=== PATIENT | female | born 1990 | race Two or more races ===

== ENCOUNTER 2023-09-18 04:19 | Emergency (ER) | payer MEDICAID ==
[~2023-09-18] VITALS: Ht 165.1 cm; Wt 50.4 kg
[~2023-09-18 04:19] MED LIST: RISP1TAB48 PO
[2023-09-18 04:27] VITALS: TEMP 97.9
[2023-09-18 04:56] LABS: PH,URINE DRUG SCREEN 5.5 (5.0-8.0)
[2023-09-18] MEDS ORDERED: KETOROLAC TROMETHAMINE 60 MG/2 ML VIAL IM ONE (05:00)
[2023-09-18 05:01] LABS: BASOPHILS % (AUTO) 0.8 % (0.0-2.0); EOSINOPHILS % (AUTO) 8.5 % (1.0-6.0); HEMATOCRIT 34.4 % (36-46); HEMOGLOBIN 11.4 g/dL (12.0-16.0); LYMPHOCYTES # (AUTO) 2.3 K/uL (1.0-4.8); LYMPHOCYTES % (AUTO) 28.4 % (22.0-44.0); MEAN CORPUSCULAR HEMOGLOBIN 28.7 pg (26.0-34.0); MEAN CORPUSCULAR HGB CONC 33.1 G/dL (31.0-37.0); MEAN CORPUSCULAR VOLUME 87 fL (80-100); MONOCYTES # (AUTO) 0.7 K/uL (0.1-1.0); MONOCYTES % (AUTO) 8.5 % (2.0-9.0); NEUTROPHILS # (AUTO) 4.4 K/uL (1.8-7.7); NEUTROPHILS % (AUTO) 53.8 % (40.0-70.0); PLATELET COUNT (AUTO) 234 K/uL (150-450); RED BLOOD CELL COUNT(AUTO) 3.96 MIL/uL (4.00-5.20); RED CELL DISTRIBUTION WIDTH 15.7 % (11.5-14.5); WHITE BLOOD COUNT (AUTO) 8.2 K/uL (4.5-11.0)
[2023-09-18 05:03] LABS: AMPHET/METH SCREEN,URINE NEGATIVE (NEGATIVE); BARBITURATE SCREEN, URINE NEGATIVE (NEGATIVE); BENZODIAZEPINES SCREEN,URINE POSITIVE (NEGATIVE); CANNABINOID SCREEN,URINE POSITIVE (NEGATIVE); COCAINE SCREEN,URINE POSITIVE (NEGATIVE); METHADONE SCREEN, URINE NEGATIVE (NEGATIVE); OPIATE SCREEN,URINE NEGATIVE (NEGATIVE); PHENCYCLIDINE SCREEN,URINE NEGATIVE (NEGATIVE)
[2023-09-18 05:04] LABS: ALCOHOL, URINE DRUG SCREEN NEGATIVE (NEGATIVE)
[2023-09-18 05:08] LABS: ANION GAP 4 mmol/L (8-16); CARBON DIOXIDE 27 mmol/L (22-29); CHLORIDE 108 mmol/L (98-107); CREATININE 0.74 mg/dL (0.60-1.30); GLOMERULAR FILTR. RATE CALC > 60 mL/min (>60); GLUCOSE,RANDOM 86 mg/dL (70-110); POTASSIUM 4.2 mmol/L (3.5-5.1); SODIUM SERUM 139 mmol/L (136-145); UREA NITROGEN, BLOOD 18 mg/dL (7-18)
[2023-09-18 05:14] LABS: ALANINE AMINOTRANSFERASE 51 U/L (12-78); ALBUMIN 2.9 g/dL (3.4-5.0); ALKALINE PHOSPHATASE 91 U/L (46-116); ASPARTATE AMINOTRANSFERASE 39 U/L (15-37); BILIRUBIN,TOTAL 0.2 mg/dL (0.1-1.0); TOTAL PROTEIN, SERUM 6.3 g/dL (6.4-8.2)
[2023-09-18] MEDS ORDERED: ALBUTEROL SULFATE HFA 90 MCG/PUFF 8 GM INHALER IH ONE (09:15)
[2023-09-18 11:35] VITALS: BP 126/79; PULSE 84; RESP 16
== END 2023-09-18 11:37 | disposition home or self-care (01) ==
LOC: EMS 04:19
DX: I47.10 Supraventricular tachycardia, unspecified (principal); J45.909 Unspecified asthma, uncomplicated; F32.A Depression, unspecified
CPT/HCPCS: 99285; 80053; 85025; 36415; 94640; 93005; 96372; 80307; J1885; J3535

== ENCOUNTER 2024-03-16 08:34 | Inpatient (IN) | payer MEDICAID ==
[~2024-03-16] VITALS: Ht 165.1 cm; Wt 61.7 kg
[2024-03-16 08:30] VITALS: BP 152/103; PULSE 111; RESP 20; TEMP 99.1; O2SAT 100
[2024-03-16] MEDS ORDERED: ACETAMINOPHEN 325 MG TABLET PO PRN (08:45)
[2024-03-16] MEDS ORDERED: PROMETHAZINE HCL 25 MG TABLET PO PRN (08:45)
[2024-03-16] MEDS ORDERED: LORazepam 2 MG TABLET PO PRN (08:45)
[2024-03-16] MEDS ORDERED: GuaiFENesin/D-METHORPHAN [SUGAR-FREE] 200-20MG/10 ML SYRUP UDCUP PO PRN ×2 (08:45→15:15)
[2024-03-16] MEDS ORDERED: MAG HYDROX/ALUMINUM HYD/SIMETH ES 30 ML SUSPENSION UDCUP PO PRN (08:45)
[2024-03-16] MEDS ORDERED: LOPERAMIDE HCL 2 MG CAPSULE PO PRN ×2 (08:45→15:15)
[2024-03-16] MEDS ORDERED: OLANZapine 5 MG RAPDIS TABLET PO PRN (08:45)
[2024-03-16] MEDS ORDERED: ZOLPIDEM TARTRATE 10 MG TABLET PO PRN (08:45)
[2024-03-16] MEDS ORDERED: HydrOXYzine PAMOATE 50 MG CAPSULE PO PRN ×2 (08:45→15:15)
[2024-03-16] MEDS ORDERED: TUBERCULIN, PURIFIED PROTEIN DERIVATIVE 5 TU/0.1 ML SYRINGE ID ONE (08:45)
[2024-03-16] MEDS ORDERED: LORazepam 2 MG/ML VIAL ONE (08:52)
[2024-03-16] MEDS ORDERED: DiphenhydrAMINE HCL 50 MG/ML VIAL ONE (08:52)
[2024-03-16] MEDS ORDERED: HALOPERIDOL LACTATE 5 MG/ML VIAL ONE (08:52)
[2024-03-16] MEDS: LORazepam 2 MG/ML VIAL IM ONE (09:00)
[2024-03-16] MEDS: DiphenhydrAMINE HCL 50 MG/ML VIAL IM ONE (09:00)
[2024-03-16] MEDS ORDERED: MULTIVITAMINS WITH MINERALS, THERAPEUTIC TABLET PO SCH (09:00)
[2024-03-16] MEDS ORDERED: FOLIC ACID 1 MG TABLET PO SCH (09:00)
[2024-03-16] MEDS: THIAMINE 100 MG TABLET PO SCH ×2 (09:00→17:00)
[2024-03-16] MEDS: NALTREXONE HCL 50 MG TABLET PO SCH (09:00)
[2024-03-16] MEDS: OMEGA-3/DHA/EPA/FISH OIL 1,000 MG CAPSULE PO SCH (09:00)
[2024-03-16] MEDS: HALOPERIDOL LACTATE 5 MG/ML VIAL IM ONE (09:01)
[2024-03-16 09:31] LABS: GLUCOMETER DEV NAME(LOC) POC.BV; POC SARS-COV2 AG, FIA NEGATIVE (NEGATIVE)
[2024-03-16] MEDS ORDERED: PALIPERIDONE PALMITATE 234 MG/1.5 ML SYRINGE IM ONE (16:00)
[2024-03-16 16:16] VITALS: BP 110/68; PULSE 62; RESP 17; TEMP 98; O2SAT 99
[2024-03-16] MEDS: CYANOCOBALAMIN 1,000 MCG/ML VIAL IM ONE (20:24)
[2024-03-16] MEDS: OLANZapine 5 MG RAPDIS TABLET PO SCH (20:24)
[2024-03-16] MEDS: MELATONIN 5 MG TABLET PO SCH (20:24)
[2024-03-16 21:37] VITALS: RESP 18
[2024-03-16 22:40] VITALS: BP 108/76; PULSE 76; RESP 16; TEMP 97.9; O2SAT 99
[2024-03-17] VITALS (8 sets, daily range): BP systolic 99–122; BP diastolic 62–78; PULSE 54–87; RESP 16–18; TEMP 97.1–98.1; O2SAT 95–100
[2024-03-17 08:56] LABS: HEMOGLOBIN A1C 5.3 % (3.8-5.6)
[2024-03-17 09:03] LABS: CHOL/HDL RATIO 2.2 (3.9-5.7); FREE T4 (FREE THYROXINE) 1.28 ng/dL (0.76-1.46); THYROID STIMULATING HORMONE 0.67 uIU/mL (0.36-3.74)
[2024-03-17] MEDS: MULTIVITAMINS WITH MINERALS, THERAPEUTIC TABLET PO SCH (10:40)
[2024-03-17] MEDS: FOLIC ACID 1 MG TABLET PO SCH (10:41)
[2024-03-17] MEDS ORDERED: ALBUTEROL SULFATE HFA 90 MCG/PUFF 8 GM INHALER IH PRN (23:45)
[2024-03-18 08:45] VITALS: BP 108/57; PULSE 73; RESP 18; TEMP 97.9; O2SAT 95
[2024-03-18 20:59] VITALS: BP 119/56; PULSE 98; RESP 16; TEMP 97.3; O2SAT 97
[2024-03-18 21:06] VITALS: BP 119/56; PULSE 98; RESP 16; TEMP 97.3; O2SAT 97
[2024-03-18] MEDS: OLANZapine 10 MG RAPDIS TABLET PO SCH (22:15)
[2024-03-18] MEDS: DIVALPROEX SODIUM 500 MG ER TABLET PO SCH (22:15)
[2024-03-19 08:28] VITALS: BP 119/78; PULSE 64; RESP 17; TEMP 97.5; O2SAT 99
[2024-03-19 15:22] VITALS: BP 119/78; PULSE 64; RESP 17; TEMP 97.5; O2SAT 99
[2024-03-19 20:37] VITALS: BP 113/83; PULSE 93; RESP 16; TEMP 97.6; O2SAT 93; O2SAT 98
[2024-03-20] MEDS ORDERED: PALIPERIDONE PALMITATE 156 MG/ML SYRINGE IM ONE (09:00)
[2024-03-20 09:38] VITALS: BP 106/64; PULSE 65; RESP 17; TEMP 96.4; O2SAT 96
[2024-03-20 21:58] VITALS: BP_SYST 95; BP_DIAS 42; BP_DIAS 52; PULSE 82; RESP 18; TEMP 97.7; O2SAT 98
[2024-03-20 22:53] VITALS: BP 95/42; PULSE 82; RESP 18; TEMP 97.7; O2SAT 98
[2024-03-21] MEDS: BuPROPion HCL XL 150 MG ER TABLET PO SCH (08:52)
[2024-03-21 09:12] VITALS: BP 122/69; PULSE 83; RESP 18; TEMP 97.9; O2SAT 98
[2024-03-21 20:25] VITALS: BP 108/70; PULSE 100; RESP 16; TEMP 98.5; O2SAT 95
[2024-03-21] MEDS ORDERED: ALBUTEROL SULFATE HFA 90 MCG/PUFF 8 GM INHALER IH PRN (20:45)
[2024-03-22 08:28] LABS: APPEARANCE,URINE HAZY (CLEAR); BILIRUBIN,URINE NEGATIVE (NEGATIVE); COLOR,URINE LIGHT YELLOW (YELLOW); GLUCOSE, URINE (UA) NEGATIVE (NEGATIVE); KETONES,URINE NEGATIVE (NEGATIVE); LEUKOCYTE ESTERASE ,URINE LARGE (NEGATIVE); NITRATE,URINE NEGATIVE (NEGATIVE); OCCULT BLOOD,URINE NEGATIVE (NEGATIVE); PH,URINE 5.5 (5.0-8.0); PH,URINE DRUG SCREEN 5.5 (5.0-8.0); PROTEIN,URINE NEGATIVE (NEGATIVE); SPECIFIC GRAVITIY, URINE 1.006 (1.003-1.030); UROBILINOGEN,URINE <=1.0 mg/dL (<=1.0)
[2024-03-22 08:33] LABS: ALCOHOL, URINE DRUG SCREEN NEGATIVE (NEGATIVE); AMPHET/METH SCREEN,URINE NEGATIVE (NEGATIVE); BARBITURATE SCREEN, URINE NEGATIVE (NEGATIVE); BENZODIAZEPINES SCREEN,URINE NEGATIVE (NEGATIVE); CANNABINOID SCREEN,URINE POSITIVE (NEGATIVE); COCAINE SCREEN,URINE NEGATIVE (NEGATIVE); METHADONE SCREEN, URINE NEGATIVE (NEGATIVE); OPIATE SCREEN,URINE NEGATIVE (NEGATIVE); PHENCYCLIDINE SCREEN,URINE NEGATIVE (NEGATIVE)
[2024-03-22 08:47] VITALS: BP 132/82; PULSE 98; RESP 18; TEMP 96.4; O2SAT 98
[2024-03-22 08:51] LABS: HCG,QUAL URINE NEGATIVE (NEGATIVE)
[2024-03-22 08:55] LABS: BACTERIA,URINE Many /HPF (None Seen); RBC,URINE None Seen /HPF (0-2); SQUAMOUS EPITHELIAL CELL,UR Moderate /LPF (None Seen)
[2024-03-22] MEDS: NITROFURANTOIN MONOHYD/M-CRYST 100 MG CAPSULE [MACROBID] PO SCH (18:01)
[2024-03-22 20:31] VITALS: BP 114/69; PULSE 136; RESP 17; TEMP 97.3; O2SAT 97
[2024-03-23 08:56] VITALS: BP 109/61; PULSE 80; RESP 16; TEMP 96.8; O2SAT 99
[2024-03-23 21:35] VITALS: BP 116/63; PULSE 91; RESP 17; TEMP 97; O2SAT 99
[2024-03-24 08:47] VITALS: BP 108/59; PULSE 68; RESP 18; TEMP 98; O2SAT 97
[2024-03-24] MEDS: BuPROPion HCL XL 150 MG ER TABLET PO SCH (10:04)
[2024-03-24 20:40] VITALS: BP 114/60; PULSE 89; RESP 18; TEMP 97.4; O2SAT 99
[2024-03-25 08:29] VITALS: BP 102/63; PULSE 79; RESP 14; TEMP 98.1; O2SAT 98
[2024-03-25] MEDS ORDERED: GABAPENTIN 300 MG CAPSULE PO PRN (12:15)
[2024-03-25] MEDS ORDERED: ESZOPICLONE 3 MG TABLET PO PRN (12:15)
[2024-03-25] MEDS ORDERED: OMEG-135 PO (16:30)
[2024-03-25] MEDS ORDERED: MELA5TAB40 PO (16:30)
[2024-03-25] MEDS ORDERED: NALT50TA33 PO (16:30)
[2024-03-25] MEDS ORDERED: DIVA500T69 PO (16:30)
[2024-03-25] MEDS ORDERED: OLAN10TA26 PO (16:30)
[2024-03-25] MEDS ORDERED: BUPR-49 PO (16:30)
[2024-03-25] MEDS: MAGNESIUM HYDROXIDE SUSPENSION 30 ML UDCUP PO PRN (20:34)
[2024-03-25 20:47] VITALS: BP 131/83; PULSE 91; RESP 18; TEMP 98.5; O2SAT 98
== END 2024-03-26 10:57 | disposition short-term general hospital (02) | DRG 750 ==
LOC: B3A 12:42 → B2S 15:44
PROVIDERS: ADMIT Psychiatry & Neurology Psychiatry; ATTEND Psychiatry & Neurology Psychiatry
PROC: GZHZZZZ Group Psychotherapy (ICD-10-PCS; principal; 2024-03-17)
PROC: GZ51ZZZ Individual Psychotherapy, Behavioral (ICD-10-PCS; 2024-03-17)
DX: F25.0 Schizoaffective disorder, bipolar type (principal); D64.9 Anemia, unspecified; F17.200 Nicotine dependence, unspecified, uncomplicated; Z20.822 Contact with and (suspected) exposure to COVID-19; J44.9 Chronic obstructive pulmonary disease, unspecified; F10.20 Alcohol dependence, uncomplicated; F15.20 Other stimulant dependence, uncomplicated; F12.20 Cannabis dependence, uncomplicated; N39.0 Urinary tract infection, site not specified; F41.9 Anxiety disorder, unspecified; Z87.440 Personal history of urinary (tract) infections; Z74.01 Bed confinement status; Z90.49 Acquired absence of other specified parts of digestive tract
CPT/HCPCS: 80061; 80164; 80307; 81001; 83036; 84439; 84443; 84703; 86592; 87086; 87186; J1200; J1630; J2060; Q9967